=== PATIENT | female | born 1955 | race Caucasian/White ===

== ENCOUNTER 2021-11-27 17:33 | Emergency (ER) | payer BC ==
[2021-11-27] MEDS ORDERED: Amiodarone 150 MG/3 ML SDV IVPUSH ONE (17:34)
[2021-11-27] MEDS ORDERED: EPINEPHrine 1:10,000 1 MG/10 ML Syringe IVPUSH ONE ×6 (17:36→18:04)
[2021-11-27] MEDS ORDERED: Calcium Chloride 10% 1 GM/10 ML Syringe IVPUSH ONE ×2 (17:36→17:52)
[2021-11-27] MEDS ORDERED: Sodium Bicarbonate 8.4% 50 MEQ/50 ML Syringe IVPUSH ONE ×2 (17:36→17:52)
[2021-11-27] MEDS ORDERED: Amiodarone 150 MG in Dextrose 5% in Water 100 ML IV ONE ×2 (17:54)
[2021-11-27] MEDS ORDERED: Magnesium Sulfate/Water 50 ML ONE (17:57)
[2021-11-27] MEDS ORDERED: Magnesium Sulfate/Water 2 GM in Premix Bag 1 BAG IV ONE (17:59)
== END 2021-11-27 23:08 | disposition expired ==
LOC: MW.ED 17:33
DX: I46.9 Cardiac arrest, cause unspecified (principal)
CPT/HCPCS: 31500; 71045; 82947; 92950; 99285; J0171; J0282; J3475